=== PATIENT | male | born 1985 ===

== ENCOUNTER 2018-05-13 09:47 | Day surgery (SDC) | payer MEDICAID ==
[2017-04-08 14:17] VITALS: BMI 19.5
[2018-05-13] MEDS ORDERED: Morphine 10 mg/5 ml Oral Soln PO PRN (10:25)
[2018-05-13] MEDS ORDERED: Dextrose 5%/0.45% NS 1,000 ML IV SCH (10:30)
[2018-05-13] MEDS ORDERED: Rocuronium 10 mg/ml (5 ml) ONE (12:22)
[2018-05-13] MEDS ORDERED: Propofol 10 mg/ml Inj (20 ML) ONE (12:24)
[2018-05-13] MEDS ORDERED: ceFAZolin 1 gm in NS 1 GM/100 ML BAG IVPB ONE (12:27)
[2018-05-13] MEDS ORDERED: HYDROmorphone 0.5 mg/0.5 ml ISec IVP PRN (12:58)
--- NOTE | 2018-05-13 13:56 | OP ---
PROCEDURE DATE: 05/13/2018 PREOPERATIVE DIAGNOSIS: Chronic tonsillitis. POSTOPERATIVE DIAGNOSIS: Chronic tonsillitis. PROCEDURE: Tonsillectomy. SIGNIFICANT FINDINGS: Chronic infected tonsils. DESCRIPTION OF PROCEDURE: The patient was brought into the room, placed in supine position. Anesthesia was initiated through an ET tube. The patient was draped in usual manner. Mouth gag was placed in oral cavity, opened and and suspended on the [place] mat inspector the usual manner. Right tonsil was grabbed, pulled medially. Incision was made in the anterior tonsillar pillar using coblation. Dissection was done between tonsil and tonsillar fossa using coblation until the tonsil was removed. Bleeding was controlled using coblation. Next. the other tonsil was grabbed, pulled medially. Incision was made in the anterior tonsillar pillar using coblation. Dissection was done between tonsil and tonsillar fossa until the tonsil was removed. Bleeding was controlled using coblation. Both tonsillar beds were rubbed vigorously with coblation wand. No bleeding was noted. Mouth gag was let down for 30 seconds, put back up. No bleeding was noted. Mouth gag was taken down and removed. The patient was taken off anesthesia and taken to recovery room in stable manner. Elie Mackenzie MD
[2018-05-13 14:15] VITALS: O2SAT 100
[2018-05-13 14:20] VITALS: BP 130/77; PULSE 60; RESP 18; TEMP 98
== END 2018-05-13 14:42 | disposition home or self-care (01) ==
LOC: C.SDS 09:47
PROVIDERS: ATTEND Otolaryngology
DX: J35.01 Chronic tonsillitis (principal)
CPT/HCPCS: 42826; 88304; J0690; J1100; J1170; J2001; J2704